=== PATIENT | female | born 1945 | race Caucasian/White ===

== ENCOUNTER 2020-08-17 15:08 | Inpatient (IN) ==
[2020-08-17 16:51] LABS: Basophils # (auto) 0.01 K/uL (0-0.2); Basophils % (auto) 0.1 %; Eosinophils # (auto) 0.07 K/uL (0-0.5); Eosinophils % (auto) 0.6 %; Hematocrit (blood only) 40.5 % (37-47); Hemoglobin 13.6 g/dL (12.0-16.0); Immature Granulocytes # (auto) 0.01 K/uL (0.00-0.02); Immature Granulocytes % (auto) 0.1 %; Mean Corpuscular Hemoglobin 29.3 pg (25-34); Mean Corpuscular Hgb Conc 33.6 g/dL (32-36); Mean Corpuscular Volume 87.3 fL (80-100); Mean Platelet Volume 10.9 fL (7.4-10.4); Monocytes # (auto) 1.31 K/uL (0.11-0.59); Monocytes % (auto) 11.9 %; Neutrophils # (auto) 8.48 K/uL (1.4-6.5); Neutrophils % (auto) 77.3 %; Platelet Count 386 K/uL (130-400); RDW Coefficient of Variation 14.4 % (11.5-14.5); RDW Standard Deviation 46.1 fL (36.4-46.3); Red Blood Count 4.64 M/uL (4.2-5.4); White Blood Count 10.98 K/uL (4.8-10.8)
[2020-08-17 17:13] LABS: Alanine Aminotransferase 264 U/L (12-78); Albumin Level 3.3 gm/dl (3.4-5.0); Aspartate Aminotransferase 214 U/L (15-37); BUN Creatinine Ratio 14.7 (10-20); Blood Urea Nitrogen 16 mg/dl (7-18); Calcium 9.6 mg/dl (8.5-10.1); Carbon Dioxide 28 mmol/L (21-32); Chloride 103 mmol/L (98-107); Est GFR (African American) 56.9; Est GFR (Non-African American) 49.1; Glucose 107 mg/dl (70-99); Potassium 3.3 mmol/L (3.5-5.1); Sodium 139 mmol/L (136-145)
[2020-08-17] MEDS ORDERED: ACETAMINOPHEN 1,000 MG/100 ML VIAL IV STA (17:14)
[2020-08-17] MEDS ORDERED: SODIUM CHLORIDE 0.9% 1000ML 1,000 ML IV SCH (17:15)
[2020-08-17 17:16] LABS: Albumin Globulin Ratio 0.6 (0.9-2); Alkaline Phosphatase 133 U/L (45-117); Bilirubin,Total 0.5 mg/dl (0.2-1); Globulin 5.1 gm/dl (2.5-4.0); Total Protein 8.4 gm/dl (6.4-8.2)
[2020-08-17 17:28] LABS: Lipase 337 U/L (73-393); Magnesium 2.3 mg/dl (1.8-2.4)
--- NOTE | 2020-08-17 17:29 | Emergency Department Note ---
History of Present Illness General Chief complaint: Back Injury/Pain Stated complaint: BACK PAIN Time Seen by Provider: 08/17/20 17:07 Source: patient Mode of arrival: ambulatory Limitations: no limitations History of Present Illness Provider complaint: Back pain Onset (ago): day(s) 4 Location: back Radiation: non-radiation Severity: moderate Pain Consistency: + constant Maximum Pain Intensity: 5 Current Pain Intensity: 5 Quality: + constant Relieved By: + none Exacerbated By: + movement Associated symptoms: + other Treatments prior to arrival: other This is a 75-year-old female who presents from home with complaints of central lumbar back pain. Patient states pain began mildly 4 days ago however has been constant, nonradiating, worse with movement. States today was the worst her pain is been. She denies any change in medications or prior history of back problems. Denies any trauma or falls. Patient denies any recent fevers. States she did receive her second Covid vaccine last week and felt achy and sore for several days however those all resolved prior to the start of this back pain. She denies having any back pain during the symptoms of the vaccination. Patient states she did have multiple bowel movements today, loose which is unusual for her, not black or bloody. She denies any change in urine. She denies any accompanying numbness or tingling. Patient states she is unable to stand straight up because of the pain. Pt seen during a time of high acuity and national emergency pandemic while wearing PPE. Home Medications Medication Instructions Recorded Confirmed Type atenolol 50 mg PO QAM 08/17/20 08/17/20 History clonazepam 0.5 mg PO AMPM 08/17/20 08/17/20 History donepezil 5 mg PO QPM 08/17/20 08/17/20 History ezetimibe 10 mg PO QAM 08/17/20 08/17/20 History melatonin 3 mg PO HS 08/17/20 08/17/20 History mesalamine 1.2 g PO BID 08/17/20 08/17/20 History mirtazapine 30 mg PO QPM 08/17/20 08/17/20 History nifedipine 90 mg PO QAM 08/17/20 08/17/20 History pantoprazole 40 mg PO QAM 08/17/20 08/17/20 History psyllium husk [Metamucil] 1 tbsp PO QAM 08/17/20 08/17/20 History quetiapine 25 mg PO HS 08/17/20 08/17/20 History rivaroxaban [Xarelto] 15 mg PO QPM 08/17/20 08/17/20 History rosuvastatin 40 mg PO QAM 08/17/20 08/17/20 History vit C-vit M-hvtdxn-dxpe-lutein 1 cap PO BID 08/17/20 08/17/20 History [PreserVision Lutein] Allergies Allergy/AdvReac Type Severity Reaction Status Date / Time escitalopram [From Lexapro] Allergy Unknown Verified 08/17/20 18:29 hydroxyzine [From Vistaril] Allergy Unknown Verified 08/17/20 18:29 Sulfa (Sulfonamide Allergy Unknown Verified 08/17/20 18:29 Antibiotics) trimethobenzamide Allergy Unknown Verified 08/17/20 18:29 [From Tigan] Past Med/Surg History Medical History (Updated 08/18/20 @ 00:46 by Nithya Roy DO) Coronary artery disease Myocardial infarction Normal colonoscopy Peripheral vascular disease Surgical History (Updated 08/17/20 @ 21:03 by Art Martinez PA-C) History of carotid endarterectomy History of cholecystectomy History of hysterectomy Social History Smoking Status: Never smoker Hx Alcohol Use: No Hx Substance Use: No Preferred Language: Occitan Communication Ability: Effective Chief Specialist Leed Required: No Beliefs That Will Affect Care: None Current Living Situation: Family Current Living Situation Comment: daughter and son-in-law Other Information That Helps Us Care for You: No Feels Safe at Home: Yes Safety Concerns: Feels Safe At This Time Assistive Devices: Denture - Lower and Glasses Review of Systems See HPI for pertinent positives & negatives. and A total of 10 systems reviewed and were otherwise negative Physical Exam Vital Signs Vital Signs - 24 hr 08/17/20 15:16 08/17/20 16:30 08/17/20 17:07 Temperature 37.1 C Temperature Source Temporal Artery Scan Pulse Rate 97 H Pulse Rate [Finger] 97 H Pulse Rate from SpO2 Sensor Pulse Rhythm [Finger] Irregular Respiratory Rate 18 20 Respiratory Effort / Characteristics Non-Labored Non-Labored Respiratory Depth Normal Normal Respiratory Pattern Regular Blood Pressure 119/71 Blood Pressure [Left Arm] 129/87 Blood Pressure Mean 87 Blood Pressure Mean [Left Arm] 101 Blood Pressure Position [Left Arm] Lying Pulse Oximetry 97 97 97 Oxygen Delivery Method Room Air Room Air Room Air Sepsis Recent Fever Within 48 Hours No Sepsis New/Unexplained Change in Mental Status No Sepsis Action Taken by Nursing No Action Required 08/17/20 17:08 08/17/20 17:10 08/17/20 17:20 Temperature Temperature Source Pulse Rate 94 H 91 H 98 H Pulse Rate [Finger] Pulse Rate from SpO2 Sensor 95 H 96 H 97 H Pulse Rhythm [Finger] Respiratory Rate 23 19 23 Respiratory Effort / Characteristics Respiratory Depth Respiratory Pattern Blood Pressure Blood Pressure [Left Arm] Blood Pressure Mean Blood Pressure Mean [Left Arm] Blood Pressure Position [Left Arm] Pulse Oximetry 95 98 97 Oxygen Delivery Method Sepsis Recent Fever Within 48 Hours Sepsis New/Unexplained Change in Mental Status Sepsis Action Taken by Nursing 08/17/20 17:30 08/17/20 17:33 08/17/20 18:01 Temperature Temperature Source Pulse Rate 94 H 94 H 93 H Pulse Rate [Finger] Pulse Rate from SpO2 Sensor 93 H 98 H 87 Pulse Rhythm [Finger] Respiratory Rate 23 21 27 H Respiratory Effort / Characteristics Respiratory Depth Respiratory Pattern Blood Pressure 120/68 89/57 L Blood Pressure [Left Arm] Blood Pressure Mean 85 67 Blood Pressure Mean [Left Arm] Blood Pressure Position [Left Arm] Pulse Oximetry 93 96 97 Oxygen Delivery Method Sepsis Recent Fever Within 48 Hours Sepsis New/Unexplained Change in Mental Status Sepsis Action Taken by Nursing 08/17/20 18:30 08/17/20 19:00 08/17/20 19:27 Temperature Temperature Source Pulse Rate 82 88 87 Pulse Rate [Finger] Pulse Rate from SpO2 Sensor 85 90 82 Pulse Rhythm [Finger] Respiratory Rate 20 23 21 Respiratory Effort / Characteristics Respiratory Depth Respiratory Pattern Blood Pressure 111/71 117/71 118/61 Blood Pressure [Left Arm] Blood Pressure Mean 84 86 80 Blood Pressure Mean [Left Arm] Blood Pressure Position [Left Arm] Pulse Oximetry 95 93 94 Oxygen Delivery Method Room Air Sepsis Recent Fever Within 48 Hours Sepsis New/Unexplained Change in Mental Status Sepsis Action Taken by Nursing 08/17/20 19:30 08/17/20 20:00 08/17/20 20:30 Temperature Temperature Source Pulse Rate 80 80 78 Pulse Rate [Finger] Pulse Rate from SpO2 Sensor 81 85 Pulse Rhythm [Finger] Respiratory Rate 26 H 20 21 Respiratory Effort / Characteristics Respiratory Depth Respiratory Pattern Blood Pressure 116/60 125/58 L 106/62 Blood Pressure [Left Arm] Blood Pressure Mean 78 80 76 Blood Pressure Mean [Left Arm] Blood Pressure Position [Left Arm] Pulse Oximetry 93 93 Oxygen Delivery Method Sepsis Recent Fever Within 48 Hours Sepsis New/Unexplained Change in Mental Status Sepsis Action Taken by Nursing 08/17/20 21:00 Temperature Temperature Source Pulse Rate 83 Pulse Rate [Finger] Pulse Rate from SpO2 Sensor Pulse Rhythm [Finger] Respiratory Rate 22 Respiratory Effort / Characteristics Respiratory Depth Respiratory Pattern Blood Pressure 116/74 Blood Pressure [Left Arm] Blood Pressure Mean 88 Blood Pressure Mean [Left Arm] Blood Pressure Position [Left Arm] Pulse Oximetry Oxygen Delivery Method Sepsis Recent Fever Within 48 Hours Sepsis New/Unexplained Change in Mental Status Sepsis Action Taken by Nursing GENERAL: alert, well appearing, well nourished, no distress, non-toxic EYE EXAM: normal conjunctiva, PERRL and EOM's grossly intact OROPHARYNX: no exudate, no erythema, lips, buccal mucosa, and tongue normal and mucous membranes are moist NECK: supple, no nuchal rigidity, no adenopathy, non-tender LUNGS: Clear to auscultation. Normal chest wall mechanics, no w/r/r HEART: no murmurs, S1 normal and S2 normal ABDOMEN: abdomen soft, non-tender, normo-active bowel sounds, no masses, no rebound or guarding. BACK: Back is symmetrical on inspection and there is no deformity, no CVA tenderness. Lower lumbar spine pain with palpation. SKIN: no rashes and no bruising UPPER EXTREMITIES: upper extremities are grossly normal. FROM, nml pulses b/l. LOWER EXTREMITIES: No pitting edema. FROM, nml pulses b/l. NEURO EXAM: Normal sensorium, cranial nerves II-XII grossly intact, normal speech, no gross weakness of arms, no gross weakness of legs. Gross sensation intact. Course Course 1944: Updated patient at bedside. 1952: Discussed with station usher gen surg Chuck MENDEZ. 2015: Patient seen and evaluated by general surgery PA in the emergency room. They do not feel this would require IR drainage or surgery and patient could be medically managed. Administered Medications Lorazepam (Ativan) 0.25 mg in 0.5 mls @ 0.5 mls/min IV Q6H PRN PRN Reason: Anxiety Stop: 09/16/20 23:09 Last Admin: 08/17/20 23:47 Dose: 0.5 mls/min Documented by: [id number] Potassium Chloride/Sodium Chloride (Normal Saline W/20 Meq Kcl) 20 meq in 1,000 mls @ 100 mls/hr IV .Q10H RENETTA Stop: 09/16/20 23:09 Last Admin: 08/17/20 23:32 Dose: 100 mls/hr Documented by: [id number] Famotidine 20 mg/ Syringe 5 mls @ 2.5 mls/min IV Q12 RENETTA Stop: 09/16/20 23:09 Last Admin: 08/17/20 23:32 Dose: 2.5 mls/min Documented by: [id number] Discontinued Medications Sodium Chloride (Nss 1000ml) 1,000 mls @ 125 mls/hr IV .Q8H RENETTA Stop: 09/16/20 17:14 Last Infusion: 08/17/20 23:13 Dose: 0 mls/hr Documented by: [id number] Admin: 08/17/20 17:34 Dose: 125 mls/hr Documented by: [id number] Acetaminophen (Ofirmev) 1,000 mg in 100 mls @ 400 mls/hr IV NOW STA Stop: 08/17/20 17:28 Last Infusion: 08/17/20 20:31 Dose: 0 mls/hr Documented by: [id number] Infusion: 08/17/20 18:40 Dose: 0 mls/hr Documented by: [id number] Admin: 08/17/20 17:33 Dose: 400 mls/hr Documented by: [id number] Piperacillin Sod/Tazobactam Sod (Zosyn) 4.5 gm in 120 mls @ 240 mls/hr IV NOW ONE Stop: 08/17/20 20:19 Last Infusion: 08/17/20 20:46 Dose: 0 mls/hr Documented by: [id number] Admin: 08/17/20 20:16 Dose: 240 mls/hr Documented by: [id number] Metronidazole (Flagyl) 500 mg in 100 mls @ 100 mls/hr IV NOW STA Stop: 08/17/20 20:49 Last Infusion: 08/17/20 21:30 Dose: 0 mls/hr Documented by: [id number] Admin: 08/17/20 20:30 Dose: 100 mls/hr Documented by: [id number] Critical Care Time Critical Care Time: Yes Total Critical Care Time: 35 Critical care of 35 min performed to assess and manage high likelihood of life- threatening bowel perforation and abscess, involving labs and imaging performed with assessment to evaluate back pain diagnosis with frequent reassessment. This time includes bedside time, treatment discussions with patient/family/consultants, documentation time and excludes procedure time. Medical Decision Making Differential Diagnosis Differential diagnoses includes but is not limited to lumbar radiculopathy, muscle strain, facture, cauda equina, mass, and disc herniation. Medical Records Attestation: I reviewed the patient's medical records. Home Medications Current Medication List: was personally reviewed by me Laboratory Data Attestation: I reviewed the patient's lab results. Result diagrams: 08/17/20 15:30 08/17/20 15:30 Lab Results 08/17/20 08/17/20 08/17/20 Range/Units 15:30 15:30 18:20 WBC 10.98 H (4.8-10.8) K/uL RBC 4.64 (4.2-5.4) M/uL Hgb 13.6 (12.0-16.0) g/dL Hct 40.5 (37-47) % MCV 87.3 (80-100) fL MCH 29.3 (25-34) pg MCHC 33.6 (32-36) g/dL RDW Std Deviation 46.1 (36.4-46.3) fL RDW Coeff of Jacki 14.4 (11.5-14.5) % Plt Count 386 (130-400) K/uL MPV 10.9 H (7.4-10.4) fL Immature Gran % (Auto) 0.1 % Neut % (Auto) 77.3 % Lymph % (Auto) 10.0 % [place] % (Auto) 11.9 % Eos % (Auto) 0.6 % Baso % (Auto) 0.1 % Neut # (Auto) 8.48 H (1.4-6.5) K/uL Lymph # (Auto) 1.10 L (1.2-3.4) K/uL [place] # (Auto) 1.31 H (0.11-0.59) K/uL Eos # (Auto) 0.07 (0-0.5) K/uL Baso # (Auto) 0.01 (0-0.2) K/uL Immature Gran # (Auto) 0.01 (0.00-0.02) K/uL Sodium 139 (136-145) mmol/L Potassium 3.3 L (3.5-5.1) mmol/L Chloride 103 (98-107) mmol/L Carbon Dioxide 28 (21-32) mmol/L Anion Gap 8.0 (3-11) BUN 16 (7-18) mg/dl Creatinine 1.10 (0.6-1.2) mg/dl Est Cr Clr Drug Dosing Not Reportable Est GFR ( Amer) 56.9 Est GFR (Non-Af Amer) 49.1 BUN/Creatinine Ratio 14.7 (10-20) Glucose 107 H (70-99) mg/dl Calcium 9.6 (8.5-10.1) mg/dl Magnesium 2.3 (1.8-2.4) mg/dl Total Bilirubin 0.5 (0.2-1) mg/dl AST 214 H (15-37) U/L ALT 264 H (12-78) U/L Alkaline Phosphatase 133 H (45-117) U/L Total Protein 8.4 H (6.4-8.2) gm/dl Albumin 3.3 L (3.4-5.0) gm/dl Globulin 5.1 H (2.5-4.0) gm/dl Albumin/Globulin Ratio 0.6 L (0.9-2) Lipase 337 (73-393) U/L Urine Color Dark Yellow Urine Appearance Clear (Clear) Urine pH 5.5 (4.5-7.5) Ur Specific [place] 1.028 (1.000-1.030) Urine Protein 2+ H (Negative) Urine Glucose (UA) Negative (Negative) Urine Ketones Trace H (Negative) Urine Blood Negative (Negative) Urine Nitrite Negative (Negative) Urine Bilirubin Negative (Negative) Urine Urobilinogen Negative (Negative) Ur Leukocyte Esterase Negative (Negative) Urine WBC (Auto) 5-10 H (0-5) /hpf Urine RBC (Auto) 0-4 (0-4) /hpf U Hyaline Cast (Auto) 5-10 H (0-5) /lpf U Epithel Cells (Auto) >30 H (0-5) /lpf Urine Bacteria (Auto) Negative (Negative) COVID-19 Eval Order SARS-CoV-2 (PCR) (Negative) Influenza Type A (PCR) (Neg) Influenza Type B (PCR) (Neg) RSV (RT-PCR) (Neg) 08/17/20 08/17/20 Range/Units 20:30 20:30 WBC (4.8-10.8) K/uL RBC (4.2-5.4) M/uL Hgb (12.0-16.0) g/dL Hct (37-47) % MCV (80-100) fL MCH (25-34) pg MCHC (32-36) g/dL RDW Std Deviation (36.4-46.3) fL RDW Coeff of Jacki (11.5-14.5) % Plt Count (130-400) K/uL MPV (7.4-10.4) fL Immature Gran % (Auto) % Neut % (Auto) % Lymph % (Auto) % [place] % (Auto) % Eos % (Auto) % Baso % (Auto) % Neut # (Auto) (1.4-6.5) K/uL Lymph # (Auto) (1.2-3.4) K/uL [place] # (Auto) (0.11-0.59) K/uL Eos # (Auto) (0-0.5) K/uL Baso # (Auto) (0-0.2) K/uL Immature Gran # (Auto) (0.00-0.02) K/uL Sodium (136-145) mmol/L Potassium (3.5-5.1) mmol/L Chloride (98-107) mmol/L Carbon Dioxide (21-32) mmol/L Anion Gap (3-11) BUN (7-18) mg/dl Creatinine (0.6-1.2) mg/dl Est Cr Clr Drug Dosing Est GFR ( Amer) Est GFR (Non-Af Amer) BUN/Creatinine Ratio (10-20) Glucose (70-99) mg/dl Calcium (8.5-10.1) mg/dl Magnesium (1.8-2.4) mg/dl Total Bilirubin (0.2-1) mg/dl AST (15-37) U/L ALT (12-78) U/L Alkaline Phosphatase (45-117) U/L Total Protein (6.4-8.2) gm/dl Albumin (3.4-5.0) gm/dl Globulin (2.5-4.0) gm/dl Albumin/Globulin Ratio (0.9-2) Lipase (73-393) U/L Urine Color Urine Appearance (Clear) Urine pH (4.5-7.5) Ur Specific [place] (1.000-1.030) Urine Protein (Negative) Urine Glucose (UA) (Negative) Urine Ketones (Negative) Urine Blood (Negative) Urine Nitrite (Negative) Urine Bilirubin (Negative) Urine Urobilinogen (Negative) Ur Leukocyte Esterase (Negative) Urine WBC (Auto) (0-5) /hpf Urine RBC (Auto) (0-4) /hpf U Hyaline Cast (Auto) (0-5) /lpf U Epithel Cells (Auto) (0-5) /lpf Urine Bacteria (Auto) (Negative) COVID-19 Eval Order CovFluRsv at [facility] SARS-CoV-2 (PCR) NEGATIVE (Negative) Influenza Type A (PCR) Negative (Neg) Influenza Type B (PCR) Negative (Neg) RSV (RT-PCR) Negative (Neg) Imaging Data Radiologist's Impression: Abdomen/Pelvis CT 08/17/20 17:[address] WITH IV CONTRAST CT DOSE: 479.46 mGy.cm HISTORY: change in bowel movements, back pain TECHNIQUE: Multiaxial CT images of the abdomen and pelvis were performed following the use of intravenous contrast. A dose lowering technique was utilized adhering to the principles of ALARA. COMPARISON STUDY: None. FINDINGS: There is a 4 mm subpleural nodule within the base of the right lower lobe on image 36. There is a large hiatus hernia containing the majority of the stomach as well as the spleen and splenic flexure of the colon. No suspicious lytic are blastic osseous lesions. There are poststernotomy changes. The gallbladder surgically absent. This may account for the mild intra and extra hepatic bile duct dilatation. No hepatic or splenic masses. The adrenal glands and pancreas are unremarkable. Small bilateral peripelvic renal cysts are noted. There are also a few subcentimeter hypodense renal lesions. These are technically too small to characterize but also favor cysts. No hydronephrosis. No retroperitoneal lymphadenopathy. Normal caliber abdominal aorta demonstrating moderate calcified plaque. The bladder is decompressed. The uterus is surgically absent. Colonic diverticulosis. There is focal thickening and pericolonic fat stranding within the proximal sigmoid colon consistent with acute diverticulitis. There is a small pericolonic abscess best seen on image 318 which measures 2.6 cm. There is also a punctate focus of extraluminal gas at this location on image 286 consistent with microperforation. There is a 1 cm indeterminate left perinephric/retroperitoneal nodule best seen on image 102. No evidence for bowel obstruction. Focal mild thickening within the mid appendix be st seen on image 289 which measures 9 mm. The distal appendix is normal in caliber. No periappendiceal fat stranding to suggest acute appendicitis. IMPRESSION: 1. Acute diverticulitis involving the proximal sigmoid colon with a small focus of microperforation and an adjacent 2.2 cm pericolonic abscess. Follow-up colonoscopy is recommended once the vasculitis has resolved to exclude the less likely possibility of an underlying colonic lesion. 2. There is an indeterminate 1 cm left perinephric/retroperitoneal nodule as described above. 3 month abdomen and pelvis CT follow-up recommended to evaluate for stability and to exclude the possibility of a soft tissue implant. 3. Focal mild thickening within the mid appendix without inflammatory change. This also requires [address] follow-up to exclude the possibility of an appendiceal lesion. 4. Large hiatus hernia. 5. A 4 mm subpleural nodule within the right lower lobe. 6. Additional findings as described above. ACT 112: Positive. There are findings on this exam that require communication between the performing entity and the patient following Patient Test Result Information Act ([place] Act 112) guidelines. Electronically signed by: Akil See M.D. 08/17/2020 7:[address] 08/17/20 17:[address] DOSE: HISTORY: low back pain TECHNIQUE: Multiaxial CT images of the lumbar spine were performed and reformatted in the sagittal and coronal plane without the use of contrast. A dose lowering technique was utilized adhering to the principles of ALARA. COMPARISON: None. FINDINGS: Mild dextroscoliosis centered at the L3 level. Moderate to severe disc space narrowing at L5-S1. Mild disc space narrowing at L2-L3 and L3-L4 with small endplate osteophytes. There are [id number] facet degenerative changes seen within the lumbar spine. This most pronounced at the L3-L4 level. The visualized sacrum is intact. No fracture or subluxation. Paravertebral soft tissues are unremarkable. Moderate central canal narrowing at L3-L4 and L4-L5 due to broad-based posterior disc bulge and ligamentum flavum and facet hy pertrophy. IMPRESSION: 1. No fractures within the lumbar spine. 2. Moderate central canal narrowing at L3-L4 and L4-L5 due to broad-based posterior disc bulges and ligamentum and facet hypertrophy. 3. Mild dextroscoliosis. ACT 112: Negative or not required by law. Electronically signed by: Akil See M.D. 08/17/2020 7:21 PM ECG Data Indication: + back/shoulder pain Rate (beats per minute): 90 Rhythm: + atrial fibrillation ECG Intervals/blocks: + Right Bundle branch block ECG [place]: + Left axis deviation ECG ST segments: + Nonspecific ST abnormalities MDM Narrative This is a 75-year-old female who presents with concern for acute onset lumbar area back pain. No prior history and no recent trauma. Given patient's advanced age and other comorbidities patient had labs drawn and sent, urine specimen collected, and was sent for CT imaging of both the lumbar spine as well as the abdomen and pelvis to evaluate for possible referred etiology of pain. Patient found to have acute diverticulitis with microperforation and accompanying abscess. Patient with no prior similar history, and no other GI history. Patient was started on IV antibiotics. No evidence for bacteremia/sepsis. Patient hemodynamically stable. Patient is anticoagulated due to history of atrial fibrillation and given abscess is small, I discussed the case with general surgery to evaluate the need for possible transfer for IR drainage versus medical management. They reviewed the case and examined the patient at bedside and felt this could be managed medically. Hospitalist team contacted for additional inpatient evaluation and treatment. Patient and family at bedside made aware of all results and were in agreement with plan. An order was placed for continuous cardiac monitoring. The monitor shows a rate of _92_ with _A. fib_ rhythm. Impression & Plan Low back pain, Diverticulitis, Hypokalemia, Intra-abdominal abscess, Perforated bowel Discharge Plan Visit Data Chief Complaint: Back Injury/Pain Stated Complaint: BACK PAIN ED Provider: Nithya Roy Discharge Problem: Low back pain, Diverticulitis, Hypokalemia, Intra-abdominal abscess, Perforated bowel Patient Disposition: Admitted As Inpatient Discharge Instructions Interventions: ED Discharge Assessment Last Done: 08/17/20 22:45 Discharge Problem: Low back pain Qualifiers: Chronicity: acute Back pain laterality: midline Sciatica presence: without sciatica Qualified Code(s): M54.5 - Low back pain
[2020-08-17 18:40] LABS: Appearance Urine Clear (Clear); Bacteria Urine Automated Negative (Negative); Bilirubin Urine Negative (Negative); Blood Urine Negative (Negative); Color Urine Dark Yellow; Epithelial Cell Urine Auto >30 /lpf (0-5); Glucose Urine UA Negative (Negative); Ketones Urine Trace (Negative); Leukocyte Esterase Urine Negative (Negative); Nitrite Urine Negative (Negative); Protein Urine 2+ (Negative); RBC Urine Automated 0-4 /hpf (0-4); Specific Gravity Urine 1.028 (1.000-1.030); Urobilinogen Urine Negative (Negative); pH Urine 5.5 (4.5-7.5)
--- NOTE | 2020-08-17 19:23 | CT Scan Report ---
LUMBAR SPINE CT CT DOSE: HISTORY: low back pain TECHNIQUE: Multiaxial CT images of the lumbar spine were performed and reformatted in the sagittal an d coronal plane without the use of contrast. A dose lowering technique was utilized adhering to the principles of ALARA. COMPARISON: None. FINDINGS: Mild dextroscoliosis centered at the L3 level. Moderate to severe disc space narrowing at L 5-S1. Mild disc space narrowing at L2-L3 and L3-L4 with small endplate osteophytes. There are mild-to -moderate facet degenerative changes seen within the lumbar spine. This most pronounced at the L3-L4 level. The visualized sacrum is intact. No fracture or subluxation. Paravertebral soft tissues are un remarkable. Moderate central canal narrowing at L3-L4 and L4-L5 due to broad-based posterior disc bul ge and ligamentum flavum and facet hypertrophy. IMPRESSION: 1. No fractures within the lumbar spine. 2. Moderate central canal narrowing at L3-L4 and L4-L5 due to broad-based posterior disc bulges and l igamentum and facet hypertrophy. 3. Mild dextroscoliosis. ACT 112: Negative or not required by law. Electronically signed by: Akil See M.D. 08/17/2020 7:21 PM
--- NOTE | 2020-08-17 19:34 | CT Scan Report ---
ABDOMEN AND PELVIS CT WITH IV CONTRAST CT DOSE: 479.46 mGy.cm HISTORY: change in bowel movements, back pain TECHNIQUE: Multiaxial CT images of the abdomen and pelvis were performed following the use of intrave nous contrast. A dose lowering technique was utilized adhering to the principles of ALARA. COMPARISON STUDY: None. FINDINGS: There is a 4 mm subpleural nodule within the base of the right lower lobe on image 36. Ther e is a large hiatus hernia containing the majority of the stomach as well as the spleen and splenic f lexure of the colon. No suspicious lytic are blastic osseous lesions. There are poststernotomy change s. The gallbladder surgically absent. This may account for the mild intra and extra hepatic bile duct dilatation. No hepatic or splenic masses. The adrenal glands and pancreas are unremarkable. Small bi lateral peripelvic renal cysts are noted. There are also a few subcentimeter hypodense renal lesions. These are technically too small to characterize but also favor cysts. No hydronephrosis. No retroper itoneal lymphadenopathy. Normal caliber abdominal aorta demonstrating moderate calcified plaque. The bladder is decompressed. The uterus is surgically absent. Colonic diverticulosis. There is focal thic kening and pericolonic fat stranding within the proximal sigmoid colon consistent with acute divertic ulitis. There is a small pericolonic abscess best seen on image 318 which measures 2.6 cm. There is a lso a punctate focus of extraluminal gas at this location on image 286 consistent with microperforati on. There is a 1 cm indeterminate left perinephric/retroperitoneal nodule best seen on image 102. No evidence for bowel obstruction. Focal mild thickening within the mid appendix best seen on image 289 which measures 9 mm. The distal appendix is normal in caliber. No periappendiceal fat stranding to ahnnah ggest acute appendicitis. IMPRESSION: 1. Acute diverticulitis involving the proximal sigmoid colon with a small focus of microperforation a nd an adjacent 2.2 cm pericolonic abscess. Follow-up colonoscopy is recommended once the vasculitis h as resolved to exclude the less likely possibility of an underlying colonic lesion. 2. There is an indeterminate 1 cm left perinephric/retroperitoneal nodule as described above. 3 month abdomen and pelvis CT follow-up recommended to evaluate for stability and to exclude the possibility of a soft tissue implant. 3. Focal mild thickening within the mid appendix without inflammatory change. This also requires [address] follow-up to exclude the possibility of an appendiceal lesion. 4. Large hiatus hernia. 5. A 4 mm subpleural nodule within the right lower lobe. 6. Additional findings as described above. ACT 112: Positive. There are findings on this exam that require communication between the performing entity and the patient following Patient Test Result Information Act ([place] Act 112) guidelines. Electronically signed by: Akil See M.D. 08/17/2020 7:33 PM
[2020-08-17] MEDS ORDERED: PIPERACILLIN/TAZOBACTAM 4.5 GM/120 ML BAG IV ONE (19:50)
[2020-08-17] MEDS ORDERED: PIPERACILL/TAZOBAC CONSULT ACTIVE PRN ×2 (19:50→23:10)
[2020-08-17] MEDS ORDERED: metroNIDAZOLE 500 MG/100 ML BAG IV STA (19:50)
--- NOTE | 2020-08-17 21:08 | Surgery Consultation ---
Date of Consultation August 17, 2020 Assessment & Plan (1) Diverticulitis of intestine with abscess: Patient will be admitted to the hospital by the medical service with the following recommendations in place: Provide analgesics Provide antiemetics Keep the patient n.p.o. Provide IV fluids for hydration Administer antibiotics. The patient has received Zosyn as well as Flagyl in the emergency department -We will consider advancing the patient's diet slowly as she clinically improves. I have discussed with the patient that we would not perform any urgent operation at this time as this would likely require a colostomy. If she does require surgery it would be ideal to allow her current infection to improve that way in the event surgery is required a 1 stage operation could be performed which would be preferable. In addition the patient's diverticulitis she is noted to have elevated transaminases and alkaline phosphatase. The etiology of this is unclear. Patient does not have any existing records so may be prudent to trend these lab values with further evaluation based on ensuing lab results. We will continue to follow along with the patient is hospitalized. Supervising Physician Co-Signing Physician Notes I personally saw and evaluated the patient with Art Martinez PA-C and agree with the assessment and plan 75 yo female with acute diverticulitis with pericolonic abscess -Keep NPO -IV Zosyn -Trend WBC -Serial abdominal exams -No plans for surgical intervention at this time History of Present Illness Reason for Consultation: Diverticulitis with abscess History of Present Illness This is a 75-year-old female who presented to the [facility] emergency department secondary to low back pain. Patient says the pain began approximately 4 days ago but has gotten progressively worse over the past 4 days. She notes that the pain is worse with movement and is nonradiating. She denies any fevers, shakes, chills. She denies any history of falls or other injuries that would explain her back pain. She denies any weight loss. She does note that several days ago she did receive her second Covid vaccine and at this time she did feel acutely ill with fevers, nausea, vomiting and generalized abdominal pain but the symptoms have since resolved. The patient notes with her current presentation she has minimal abdominal pain. She has not had any nausea vomiting today and she has not had any fevers, shakes, or chills today. She denies any issues with constipation and she also denies any bright blood per rectum, hematochezia, or melena. Patient says that she has had multiple colonoscopies in the past and the best of her knowledge there have never been any pathology of concern with any of these studies. Because of her symptomatology she did undergo labs and imaging that were independently reviewed by myself. A CBC revealed a white blood cell count of 10.9. Her hemoglobin, hematocrit, and platelet count were all noted to be within normal range. Chemistry profile did reveal her sodium was normal with a potassium of 3.3. Her BUN and creatinine were noted to be normal. Patient was noted to have elevated LFTs with an AST of 214 and ALT of 264. Her alkaline phosphatase was noted to be 133. Lipase was noted to be within normal range and the patient's bilirubin was also noted to be normal. Covid test has been ordered and is pending. Patient did have a CT scan of her abdomen which revealed acute diverticulitis of the sigmoid colon with a microperforation and a pericolonic abscess measuring 2.[address] spine [address] was performed that showed no fractures within the lumbar spine and there is moderate central canal narrowing at the L3-L5 levels. At the time of my interview the patient was resting comfortably in bed in no distress Allergies Allergy/AdvReac Type Severity Reaction Status Date / Time escitalopram [From Lexapro] Allergy Unknown Verified 08/17/20 18:29 hydroxyzine [From Vistaril] Allergy Unknown Verified 08/17/20 18:29 Sulfa (Sulfonamide Allergy Unknown Verified 08/17/20 18:29 Antibiotics) trimethobenzamide Allergy Unknown Verified 08/17/20 18:29 [From Tigan] Home Medications Medication Instructions Recorded Confirmed Type atenolol 50 mg PO QAM 08/17/20 08/17/20 History clonazepam 0.5 mg PO AMPM 08/17/20 08/17/20 History donepezil 5 mg PO QPM 08/17/20 08/17/20 History ezetimibe 10 mg PO QAM 08/17/20 08/17/20 History melatonin 3 mg PO HS 08/17/20 08/17/20 History mesalamine 1.2 g PO BID 08/17/20 08/17/20 History mirtazapine 30 mg PO QPM 08/17/20 08/17/20 History nifedipine 90 mg PO QAM 08/17/20 08/17/20 History pantoprazole 40 mg PO QAM 08/17/20 08/17/20 History psyllium husk [Metamucil] 1 tbsp PO QAM 08/17/20 08/17/20 History quetiapine 25 mg PO HS 08/17/20 08/17/20 History rivaroxaban [Xarelto] 15 mg PO QPM 08/17/20 08/17/20 History rosuvastatin 40 mg PO QAM 08/17/20 08/17/20 History vit C-vit I-vftxcp-oovs-lutein 1 cap PO BID 08/17/20 08/17/20 History [PreserVision Lutein] Patient History Medical History (Updated 08/18/20 @ 03:24 by Arun Harvey MD) Anxiety Chronic anticoagulation Coronary artery disease Dementia Depression Hyperlipidemia Hypertension Myocardial infarction Normal colonoscopy Peripheral vascular disease Surgical History (Updated 08/17/20 @ 21:03 by Art Martinez PA-C) History of carotid endarterectomy History of cholecystectomy History of hysterectomy Social History Smoking Status: Never smoker Hx Alcohol Use: No Hx Substance Use: No Preferred Language: Georgian Communication Ability: Effective Director Public Service Required: No Beliefs That Will Affect Care: None Current Living Situation: Family Current Living Situation Comment: daughter and son-in-law Other Information That Helps Us Care for You: No Feels Safe at Home: Yes Safety Concerns: Feels Safe At This Time Assistive Devices: Denture - Lower and Glasses Review of Systems Constitutional: no fever and no chills Eyes: no diplopia Ear, Nose, Mouth, Throat: no ear pain Respiratory: no cough and no dyspnea Cardiovascular: no chest pain Gastrointestinal: + abdominal pain; no nausea, no vomiting, no diarrhea/loose stools and no blood in stools Genitourinary: no dysuria Musculoskeletal: + back pain Integumentary: no rash Neurologic: no localized weakness Physical Exam Constitutional: well developed and well nourished; no acute distress Eyes: no conjunctival abnormality Wears glasses ENMT: Ears: no hearing impairment Neck: trachea midline Respiratory: normal respiratory effort; no respiratory distress and no labored breathing Cardiovascular: Rate/Rhythm: regular rate and regular rhythm Gastrointestinal (Abdomen): Abdomen is soft and nondistended. Bowel sounds are present. There is no rebound tenderness or guarding. Patient did have pain with palpation in the left lower quadrant only with deep palpation Musculoskeletal: No calf tenderness Skin: no rashes, warm and dry Neurologic: The patient was able to move all 4 extremities and follow simple commands without any noted focal deficits. Patient had equal strength in her lower extremities bilaterally Psychiatric: A+Ox3, euthymic affect Results & Data ([facility]) Vital Signs (Past 12 Hours) Vital Signs Temp Pulse Pulse Resp BP BP Pulse Ox 08/17/20 19:27 82 18 118/61 93 08/17/20 17:33 94 H 21 120/68 96 08/17/20 17:30 94 H 23 93 08/17/20 17:20 98 H 23 97 08/17/20 17:10 91 H 19 98 08/17/20 17:08 94 H 23 95 08/17/20 17:07 97 08/17/20 16:30 97 H 20 129/87 97 08/17/20 15:16 37.1 C 97 H 18 119/71 97 PG Care Time/CCT Total # of Minutes Spent Total Time Spent with Patient: Total time spent is greater than 50% in coordination of care (as documented) at patient's floor/unit and/or counseling patient: Coding Level of Care Code 96367 Inpt Consult Level 5 Diagnoses Diverticulitis of intestine with abscess K57.80
[2020-08-17 21:28] LABS: Influenza A virus by PCR Negative (Neg); Influenza B virus by PCR Negative (Neg); RSV by PCR Negative (Neg); SARS CoV2 RNA(COVID-19) InHosp NEGATIVE (Negative)
[2020-08-17] MEDS ORDERED: hydrALAZINE HCL 20 MG/ML VIAL IV PRN (23:10)
[2020-08-17] MEDS ORDERED: MoRPHine SULFATE 2 MG/ML CARP IV PRN (23:10)
[2020-08-17] MEDS ORDERED: ONDANSETRON INJ 2 MG/ML 2 ML VIAL IV PRN (23:10)
[2020-08-17] MEDS: FAMOTIDINE 20 MG in SYRINGE 3 ML IV SCH (23:32)
[2020-08-17] MEDS: NSS + 20MEQ KCL 20 MEQ/1,000 ML BAG IV SCH (23:32)
[2020-08-17] MEDS: LORazepam 0.25 MG/0.5 ML VIAL IV PRN (23:47)
--- NOTE | 2020-08-18 | History & Physical Report ---
Date of Service August 17, 2020 Assessment & Plan (1) Diverticulitis of intestine with perforation and abscess: Diverticulitis of intestine with perforation and abscess/presumptive IBD- Hold mesalamine, and oral pantoprazole while n.p.o. Zosyn 3.375 g IV every 8 hours Flagyl 500 mg IV every 8 hours Famotidine 20 mg IV every 12 hours NSS + KCl 20 mEq at 100 mils per hour Zofran 4 mg IV every 6 hours as needed Morphine sulfate 2 mg IV every 4 hours as needed severe pain Present on Admission?: Yes (2) Coronary artery disease: CAD/HTN- Hold atenolol, nifedipine, Xarelto. Hydralazine 10 mg IV every 4 hours as needed systolic blood pressure greater than 160 Present on Admission?: Yes (3) Hypertension: see above Present on Admission?: Yes (4) Hyperlipidemia: Hold rosuvastatin Present on Admission?: Yes (5) Chronic anticoagulation: Hold Xarelto in the event of upcoming procedure May need to bridge with Lovenox or heparin IV in the interim Present on Admission?: Yes (6) Dementia: Dementia/anxiety/depression- Since patient is n.p.o. we will hold: Clonazepam, donepezil, melatonin, Seroquel. Present on Admission?: Yes (7) Anxiety: See above Present on Admission?: Yes (8) Depression: See above Present on Admission?: Yes (9) Low back pain: Low back pain/lumbar degenerative disc disease/lumbar spinal stenosis- No acute fractures on CT scan. No active treatment at this time due to overriding effect of GI infection. Present on Admission?: Yes (10) Lumbar degenerative disc disease: See above Present on Admission?: Yes (11) Lumbar spinal stenosis: See above Present on Admission?: Yes Admission and Anticipated Discharge Date Admission Date: August 17, 2020 History of Present Illness Chief Complaint: The patient presents to the emergency department with complaint of low back pain ever since she had her second COVID-19 vaccine last week, has f elt generally achy and sore, and today as noted increased number of relatively loose bowel movements. Primary Care Provider: PT DECLINED The patient is a 75-year-old female with a past medical history including hypertension, anxiety, dementia, hyperlipidemia, insomnia, GERD, CAD, myocardial infarction, peripheral vascular disease, status post CEA, cholecystectomy and hysterectomy. She presents with symptoms as noted above. Allergies Allergy/AdvReac Type Severity Reaction Status Date / Time escitalopram [From Lexapro] Allergy Unknown Verified 08/17/20 18:29 hydroxyzine [From Vistaril] Allergy Unknown Verified 08/17/20 18:29 Sulfa (Sulfonamide Allergy Unknown Verified 08/17/20 18:29 Antibiotics) trimethobenzamide Allergy Unknown Verified 08/17/20 18:29 [From Tigan] Home Medications Medication Instructions Recorded Confirmed Type atenolol 50 mg PO QAM 08/17/20 08/17/20 History clonazepam 0.5 mg PO AMPM 08/17/20 08/17/20 History donepezil 5 mg PO QPM 08/17/20 08/17/20 History ezetimibe 10 mg PO QAM 08/17/20 08/17/20 History melatonin 3 mg PO HS 08/17/20 08/17/20 History mesalamine 1.2 g PO BID 08/17/20 08/17/20 History mirtazapine 30 mg PO QPM 08/17/20 08/17/20 History nifedipine 90 mg PO QAM 08/17/20 08/17/20 History pantoprazole 40 mg PO QAM 08/17/20 08/17/20 History psyllium husk [Metamucil] 1 tbsp PO QAM 08/17/20 08/17/20 History quetiapine 25 mg PO HS 08/17/20 08/17/20 History rivaroxaban [Xarelto] 15 mg PO QPM 08/17/20 08/17/20 History rosuvastatin 40 mg PO QAM 08/17/20 08/17/20 History vit C-vit R-whnqfl-lzak-lutein 1 cap PO BID 08/17/20 08/17/20 History [PreserVision Lutein] Past Med/Surg History Medical History (Updated 08/18/20 @ 03:24 by Arun Harvey MD) Anxiety Chronic anticoagulation Coronary artery disease Dementia Depression Hyperlipidemia Hypertension Myocardial infarction Normal colonoscopy Peripheral vascular disease Surgical History (Updated 08/17/20 @ 21:03 by Art Martinez PA-C) History of carotid endarterectomy History of cholecystectomy History of hysterectomy Social History Smoking Status: Never smoker Hx Alcohol Use: No Hx Substance Use: No Preferred Language: Luxembourger Communication Ability: Effective Rn Tele Required: No Beliefs That Will Affect Care: None Current Living Situation: Family Current Living Situation Comment: daughter and son-in-law Other Information That Helps Us Care for You: No Feels Safe at Home: Yes Safety Concerns: Feels Safe At This Time Assistive Devices: Glasses Review of Systems Review of Systems: The patient denies chest pain, palpitations, shortness of breath, dyspnea on exertion, cough, lower extremity swelling, sore throat, fevers, chills, sweats, nausea, vomiting, blood in urine or stool, dysuria, urinary frequency or urgency, lightheadedness, dizziness, headache, memory loss, loss of consciousness, rash, abnormal bruising or bleeding, imbalance, focal or generalized weakness, numbness or tingling in arms or legs, neck pain, or night sweats. The review of systems is otherwise negative other than for that already noted above, and at least 10 systems have been reviewed. Physical Exam Physical Exam: The patient is awake, alert and oriented 3, well developed and well nourished, normocephalic and atraumatic, lying in bed and in no acute distress. HEENT--PERRL, EOMI, mucous membranes and oropharynx dry. Neck--supple. No JVD. No bruits. Thyroid normal, trachea midline, no adenopathy. Heart--normal S1 and S2. No murmurs, rubs or gallops. Lungs--clear bilaterally, no respiratory distress, no accessory muscle use. Abdomen--decreased bowel sounds and soft. Tender left lower quadrant. Nondistended. Extremities--no cyanosis or clubbing. No edema. Dermatologic--normal skin turgor, normal color, no abnormal lymph nodes, no rash. Neurologic--cranial nerves II through XII grossly intact. Rheumatologic--normal range of motion. Psychiatric--normal affect. Results & Data Results & Data ([facility]) Vital Signs (Past 12 Hours) Vital Signs Temp Pulse Pulse Resp BP BP BP 08/17/20 22:45 97.7 F 80 18 119/74 08/17/20 22:22 76 18 106/70 08/17/20 21:00 83 22 116/74 08/17/20 20:30 78 21 106/62 08/17/20 20:00 80 20 125/58 L 08/17/20 19:30 80 26 H 116/60 08/17/20 19:27 87 21 118/61 08/17/20 19:00 88 23 117/71 08/17/20 18:30 82 20 111/71 08/17/20 18:01 93 H 27 H 89/57 L 08/17/20 17:33 94 H 21 120/68 08/17/20 17:30 94 H 23 08/17/20 17:20 98 H 23 08/17/20 17:10 91 H 19 08/17/20 17:08 94 H 23 08/17/20 17:07 08/17/20 16:30 97 H 20 129/87 08/17/20 15:16 98.8 F 97 H 18 119/71 Pulse Ox 08/17/20 22:45 93 08/17/20 22:22 94 08/17/20 21:00 08/17/20 20:30 08/17/20 20:00 93 08/17/20 19:30 93 08/17/20 19:27 94 08/17/20 19:00 93 08/17/20 18:30 95 08/17/20 18:01 97 08/17/20 17:33 96 08/17/20 17:30 93 08/17/20 17:20 97 08/17/20 17:10 98 08/17/20 17:08 95 08/17/20 17:07 97 08/17/20 16:30 97 08/17/20 15:16 97 Laboratory Results Laboratory Results WBC 10.98 K/uL (4.8-10.8) H 08/17/20 15:30 RBC 4.64 M/uL (4.2-5.4) 08/17/20 15:30 Hgb 13.6 g/dL (12.0-16.0) 08/17/20 15:30 Hct 40.5 % (37-47) 08/17/20 15:30 MCV 87.3 fL (80-100) 08/17/20 15:30 MCH 29.3 pg (25-34) 08/17/20 15:30 MCHC 33.6 g/dL (32-36) 08/17/20 15:30 RDW Std Deviation 46.1 fL (36.4-46.3) 08/17/20 15:30 RDW Coeff of Jacki 14.4 % (11.5-14.5) 08/17/20 15: Plt Count 386 K/uL (130-400) 08/17/20 15:30 MPV 10.9 fL (7.4-10.4) H 08/17/20 15:30 Immature Gran % (Auto) 0.1 % 08/17/20 15: Neut % (Auto) 77.3 % 08/17/20 15:30 Lymph % (Auto) 10.0 % 08/17/20 15:30 Mcdonald % (Auto) 11.9 % 08/17/20 15: Eos % (Auto) 0.6 % 08/17/20 15: Baso % (Auto) 0.1 % 08/17/20 15:30 Neut # (Auto) 8.48 K/uL (1.4-6.5) H 08/17/20 15:30 Lymph # (Auto) 1.10 K/uL (1.2-3.4) L 08/17/20 15:30 Mcdonald # (Auto) 1.31 K/uL (0.11-0.59) H 08/17/20 15:30 Eos # (Auto) 0.07 K/uL (0-0.5) 08/17/20 15:30 Baso # (Auto) 0.01 K/uL (0-0.2) 08/17/20 15:30 Immature Gran # (Auto) 0.01 K/uL (0.00-0.02) 08/17/20 15:30 Sodium 139 mmol/L (136-145) 08/17/20 15:30 Potassium 3.3 mmol/L (3.5-5.1) L 08/17/20 15:30 Chloride 103 mmol/L (98-107) 08/17/20 15:30 Carbon Dioxide 28 mmol/L (21-32) 08/17/20 15:30 Anion Gap 8.0 (3-11) 08/17/20 15:30 BUN 16 mg/dl (7-18) 08/17/20 15:30 Creatinine 1.10 mg/dl (0.6-1.2) 08/17/20 15:30 Est Cr Clr Drug Dosing Not Reportable 08/17/20 15:30 Est GFR ( Amer) 56.9 08/17/20 15:30 Est GFR (Non-Af Amer) 49.1 08/17/20 15:30 BUN/Creatinine Ratio 14.7 (10-20) 08/17/20 15:30 Glucose 107 mg/dl (70-99) H 08/17/20 15:30 Calcium 9.6 mg/dl (8.5-10.1) 08/17/20 15:30 Magnesium 2.3 mg/dl (1.8-2.4) 08/17/20 15:30 Total Bilirubin 0.5 mg/dl (0.2-1) 08/17/20 15:30 AST 214 U/L (15-37) H 08/17/20 15:30 ALT 264 U/L (12-78) H 08/17/20 15:30 Alkaline Phosphatase 133 U/L (45-117) H 08/17/20 15:30 Total Protein 8.4 gm/dl (6.4-8.2) H 08/17/20 15:30 Albumin 3.3 gm/dl (3.4-5.0) L 08/17/20 15:30 Globulin 5.1 gm/dl (2.5-4.0) H 08/17/20 15:30 Albumin/Globulin Ratio 0.6 (0.9-2) L 08/17/20 15:30 Lipase 337 U/L (73-393) 08/17/20 15:30 Urine Color Dark Yellow 08/17/20 18:20 Urine Appearance Clear (Clear) 08/17/20 18:20 Urine pH 5.5 (4.5-7.5) 08/17/20 18:20 Ur Specific [place] 1.028 (1.000-1.030) 08/17/20 18:20 Urine Protein 2+ (Negative) H 08/17/20 18:20 Urine Glucose (UA) Negative (Negative) 08/17/20 18:20 Urine Ketones Trace (Negative) H 08/17/20 18:20 Urine Blood Negative (Negative) 08/17/20 18:20 Urine Nitrite Negative (Negative) 08/17/20 18:20 Urine Bilirubin Negative (Negative) 08/17/20 18:20 Urine Urobilinogen Negative (Negative) 08/17/20 18:20 Ur Leukocyte Esterase Negative (Negative) 08/17/20 18:20 Urine WBC (Auto) 5-10 /hpf (0-5) H 08/17/20 18:20 Urine RBC (Auto) 0-4 /hpf (0-4) 08/17/20 18:20 U Hyaline Cast (Auto) 5-10 /lpf (0-5) H 08/17/20 18:20 U Epithel Cells (Auto) >30 /lpf (0-5) H 08/17/20 18:20 Urine Bacteria (Auto) Negative (Negative) 08/17/20 18:20 COVID-19 Eval Order [facility]Rsv at [facility] 08/17/20 20:30 SARS-CoV-2 (PCR) NEGATIVE (Negative) 08/17/20 20:30 Influenza Type A (PCR) Negative (Neg) 08/17/20 20:30 Influenza Type B (PCR) Negative (Neg) 08/17/20 20:30 RSV (RT-PCR) Negative (Neg) 08/17/20 20:30 Impressions Abdomen/Pelvis CT 08/17/20 17:[address] WITH IV CONTRAST CT DOSE: 479.46 mGy.cm HISTORY: change in bowel movements, back pain TECHNIQUE: Multiaxial CT images of the abdomen and pelvis were performed following the use of intravenous contrast. A dose lowering technique was utilized adhering to the principles of ALARA. COMPARISON STUDY: None. FINDINGS: There is a 4 mm subpleural nodule within the base of the right lower lobe on image 36. There is a large hiatus hernia containing the majority of the stomach as well as the spleen and splenic flexure of the colon. No suspicious lytic are blastic osseous lesions. There are poststernotomy changes. The gallbladder surgically absent. This may account for the mild intra and extra hepatic bile duct dilatation. No hepatic or splenic masses. The adrenal glands and pancreas are unremarkable. Small bilateral peripelvic renal cysts are noted. There are also a few subcentimeter hypodense renal lesions. These are technically too small to characterize but also favor cysts. No hydronephrosis. No retroperitoneal lymphadenopathy. Normal caliber abdominal aorta demonstrating moderate calcified plaque. The bladder is decompressed. The uterus is surgically absent. Colonic diverticulosis. There is focal thickening and pericolonic fat stranding within the proximal sigmoid colon consistent with acute diverticulitis. There is a small pericolonic abscess best seen on image 318 which measures 2.6 cm. There is also a punctate focus of extraluminal gas at this location on image 286 consistent with microperforation. There is a 1 cm indeterminate left perinephric/retroperitoneal nodule best seen on image 102. No evidence for bowel obstruction. Focal mild thickening within the mid appendix best seen on image 289 which measures 9 mm. The distal appendix is normal in caliber. No periappendiceal fat stranding to suggest acute appendicitis. IMPRESSION: 1. Acute diverticulitis involving the proximal sigmoid colon with a small focus of microperforation and an adjacent 2.2 cm pericolonic abscess. Follow-up colonoscopy is recommended once the vasculitis has resolved to exclude the less likely possibility of an underlying colonic lesion. 2. There is an indeterminate 1 cm left perinephric/retroperitoneal nodule as described above. 3 month abdomen and pelvis CT follow-up recommended to evaluate for stability and to exclude the possibility of a soft tissue implant. 3. Focal mild thickening within the mid appendix without inflammatory change. This also requires [address] follow-up to exclude the possibility of an appendiceal lesion. 4. Large hiatus hernia. 5. A 4 mm subpleural nodule within the right lower lobe. 6. Additional findings as described above. ACT 112: Positive. There are findings on this exam that require communication between the performing entity and the patient following Patient Test Result Information Act ([place] Act 112) guidelines. Electronically signed by: Akil See M.D. 08/17/2020 7:[address] 08/17/20 17:[address] DOSE: HISTORY: low back pain TECHNIQUE: Multiaxial CT images of the lumbar spine were performed and reformatted in the sagittal and coronal plane without the use of contrast. A dose lowering technique was utilized adhering to the principles of ALARA. COMPARISON: None. FINDINGS: Mild dextroscoliosis centered at the L3 level. Moderate to severe disc space narrowing at L5-S1. Mild disc space narrowing at L2-L3 and L3-L4 with small endplate osteophytes. There are [id number] facet degenerative changes seen within the lumbar spine. This most pronounced at the L3-L4 level. The visualized sacrum is intact. No fracture or subluxation. Paravertebral soft tissues are unremarkable. Moderate central canal narrowing at L3-L4 and L4-L5 due to broad-based posterior disc bulge and ligamentum flavum and facet hypertrophy. IMPRESSION: 1. No fractures within the lumbar spine. 2. Moderate central canal narrowing at L3-L4 and L4-L5 due to broad-based posterior disc bulges and ligamentum and facet hypertrophy. 3. Mild dextroscoliosis. ACT 112: Negative or not required by law. Electronically signed by: Akil eSe M.D. 08/17/2020 7:21 PM Code Status & VTE Plan Code Status Full code VTE Prophylaxis Plan VTE Prophylaxis will be ordered: Yes PG Care Time/CCT Total # of Minutes Spent Total Time Spent with Patient: Total time spent is greater than 50% in coordination of care (as documented) at patient's floor/unit and/or counseling patient: Coding Level of Care Code 32439 Initial Inpt Care Lvl 3 Diagnoses Diverticulitis of intestine with perforation and abscess K57.80 Coronary artery disease I25.10 Hypertension I10 Hyperlipidemia E78.5 Chronic anticoagulation Z79.01 Dementia F03.90 Anxiety F41.9 Depression F32.9 Low back pain M54.5 Back pain laterality: midline Chronicity: acute Sciatica presence: without sciatica Lumbar degenerative disc disease M51.36 Lumbar spinal stenosis M48.061 (1) Low back pain Back pain laterality: midline Chronicity: acute Sciatica presence: without sciatica Qualified Code(s): M54.5 - Low back pain
[2020-08-18] MEDS: PIPERACILLIN/TAZOBACTAM 3.375 GM in DEXTROSE 5% 100 ML IV SCH ×3 (02:00→18:01)
[2020-08-18] MEDS ORDERED: metroNIDAZOLE 500 MG/100 ML BAG IV SCH (04:00)
[2020-08-18 06:04] LABS: Basophils # (auto) 0.01 K/uL (0-0.2); Basophils % (auto) 0.1 %; Eosinophils # (auto) 0.12 K/uL (0-0.5); Eosinophils % (auto) 1.6 %; Hematocrit (blood only) 35.6 % (37-47); Hemoglobin 11.8 g/dL (12.0-16.0); Immature Granulocytes # (auto) 0.01 K/uL (0.00-0.02); Immature Granulocytes % (auto) 0.1 %; Lymphocytes # (auto) 0.85 K/uL (1.2-3.4); Lymphocytes % (auto) 11.6 %; Mean Corpuscular Hgb Conc 33.1 g/dL (32-36); Mean Corpuscular Volume 87.5 fL (80-100); Mean Platelet Volume 10.4 fL (7.4-10.4); Monocytes # (auto) 1.12 K/uL (0.11-0.59); Monocytes % (auto) 15.3 %; Neutrophils # (auto) 5.22 K/uL (1.4-6.5); Neutrophils % (auto) 71.3 %; Platelet Count 287 K/uL (130-400); RDW Coefficient of Variation 14.5 % (11.5-14.5); RDW Standard Deviation 46.6 fL (36.4-46.3); Red Blood Count 4.07 M/uL (4.2-5.4); White Blood Count 7.33 K/uL (4.8-10.8)
[2020-08-18 06:21] LABS: INR 1.2 (0.9-1.1); Partial Thromboplastin Ratio 1.2; Partial Thromboplastin Time 32.4 Seconds (21.0-31.0); Prothrombin Time 12.4 Seconds (9.0-12.0)
[2020-08-18 06:36] LABS: Albumin Level 2.5 gm/dl (3.4-5.0); BUN Creatinine Ratio 12.4 (10-20); Calcium 8.2 mg/dl (8.5-10.1); Creatinine Clr Calc Pharmacy 58.6 ml/min; Est GFR (African American) 72.5; Est GFR (Non-African American) 62.5; Potassium 3.3 mmol/L (3.5-5.1)
[2020-08-18 06:42] LABS: Albumin Globulin Ratio 0.7 (0.9-2); Bilirubin,Total 0.4 mg/dl (0.2-1); Globulin 3.7 gm/dl (2.5-4.0); Total Protein 6.2 gm/dl (6.4-8.2)
[2020-08-18] MEDS: FAMOTIDINE 20 MG in SYRINGE 3 ML IV SCH (08:47)
[2020-08-18] MEDS: ACETAMINOPHEN 325 MG TAB PO PRN ×2 (08:47→21:59)
--- NOTE | 2020-08-18 09:30 | Surgery Progress Note ---
Date of Service August 18, 2020 Assessment & Plan (1) Diverticulitis of intestine with perforation and abscess: Patient here with diverticulitis and microperforation of sigmoid colon WBC 7 (10). Patient afebrile She reports + bowel function Abdomen ttp in the LLQ Continue IV abx Would continue NPO with ice/sips for today Admission and Anticipated Discharge Date Admission Date: August 17, 2020 Supervising Physician Co-Signing Physician Notes I personally saw and evaluated the patient with Lilibeth Dowell PA-C and agree with the assessment and plan. 75 yo female with acute diverticulitis with abscess -Ok to trial clear liquids -Pain control PRN -WBC has normalized -No plans for surgical intervention at this time Subjective Patient states she has some abdominal pain this AM after having a BM. She states the pain doubled her over, but she is feeling somewhat better now after receivin g pain medication. She is passing flatus. She denies nausea/vomiting. Physical Exam Physical Exam: awake/alert Constitutional: well developed and well nourished; no acute distress Respiratory: normal respiratory effort Gastrointestinal (Abdomen): Inspection/Auscultation: abdomen not distended Percussion/Palpation: + abdomen tender (ttp in the lower abdomen, worse on the L side) and abdomen soft Results & Data ([facility]) Vital Signs (Past 12 Hours) Vital Signs Temp Pulse Pulse Resp BP BP Pulse Ox 08/18/20 07:26 36.5 C 70 18 118/78 94 08/17/20 22:45 36.5 C 80 18 119/74 93 08/17/20 22:22 76 18 106/70 94 PG Care Time/CCT Total # of Minutes Spent Total Time Spent with Patient: Total time spent is greater than 50% in coordination of care (as documented) at patient's floor/unit and/or counseling patient: Coding Level of Care Code 05486 Subseq Hosp Care Lvl 1 Diagnoses Diverticulitis of intestine with perforation and abscess K57.80
[2020-08-18] MEDS: NSS + 20MEQ KCL 20 MEQ/1,000 ML BAG IV SCH ×2 (09:50→20:21)
--- NOTE | 2020-08-18 12:19 | Hospitalist Progress Note ---
Date of Service August 18, 2020 Assessment & Plan (1) Diverticulitis of intestine with perforation and abscess: Anamika Parra is a 75 yo female with h/o a-fib (on Xarelto/Atenolol), HTN, HLD, previous MS, PVD, s/p CEA, dementia and anxiety who was admitted to [facility] on 08/17/2020 for complicated diverticulitis. Being managed medically. Diverticulitis Presented with abdominal pain and loose BMs, CT showed sigmoid diverticulitis with picro-perforation and pericolonic abscess. - surgery consulted: recommend medical management with abx as above as well as bowel rest, IVFs and pain/nausea treatment; may consider surgical intervention after infection resolves - Received Zosyn/Flagyl in the ED, continue with Zosyn - continue NSS + 20mEq KCL @100cc/hr - Tylenol/Morphine PRN pain regimen - Zofran PRN anti-emetic - advanced diet to clear liquids today - CBC daily Transaminitis, improving Elevated ALT/AST to 200s, decreased by 50% today, suspect demand ischemia in liver 2/2 dehydration in context of diverticulitis. - trend CMP daily GERD - re-started home Protonix 40mg PO QAM Atrial Fibrillation - re-started home Xarelto 15mg PO QPM, given no acute surgical intervention Hypertension - Hydralazine 10 mg IV every 4 hours as needed systolic blood pressure greater than 160 Hyperlipidemia - re-started rosuvastatin Dementia/anxiety/depression - Re-started: Donepezil, Mirtazepine, Seroquel - PRN Ativan 0.25mg IV Q6H to replace home Klonipin FEN/GI: clear liquid diet, IVFs as above DVT Prophylaxis: Xarelto 15mg PO QPM Code Status: Full code Disposition: Med/surg (2) Coronary artery disease: (3) Hypertension: (4) Hyperlipidemia: (5) Chronic anticoagulation: Admission and Anticipated Discharge Date Admission Date: August 17, 2020 Supervising Physician Co-Signing Physician Notes I personally examined the patient and verified all nelson points of history and exam, discussed case, and agree with decision making with Dr Ojeda. Feeling better than when she came in. Still some left lower abdominal pain but improved. Pain generally now only whenever she feels like she has to have a bowel movement. Very hungry. Vitals noted, in general she is awake and alert pleasant no distress. HEENT normocephalic atraumatic mucous membranes moist. Breathing unlabored no accessory muscle use good effort. Abdomen is soft nondistended mild surprisingly mild left lower quadrant tenderness without guarding rebound or rigidity. Diverticulitis with perforation and small abscessfortunately appears to be doing well with conservative care. Continue antibiotics. Continue supportive care. Otherwise as above Subjective No acute events overnight. Patient reports improvement in abdominal pain this morning after taking Tylenol but says it is still present in LLQ. Reports worsening of pain with BMs; has had 2 BMs since hospitalized that are loose but no blood. Wants to try clear liquids. Denies fever/chills, chest pain, palpitations, SOB. Review of Systems Review of Systems: Pertinent positives and negatives mentioned in HPI Physical Exam Physical Exam: General: A&Ox3. NAD. Cooperative. HEENT: Atraumatic, normocephalic. Pulm: CTAB A&P. -wheezes, -rales, -rhonchi. Symmetrical chest rise. No increase work of breathing. No respiratory distress. Cardiac: RRR, -mrg. Radial pulses intact and symmetrical. Abdominal: soft, non-distended, moderate TTP in LLQ without guarding or rebound, NA BS x 4 Skin: warm, dry Results & Data Results & Data ([facility]) Vital Signs (Past 12 Hours) Vital Signs Temp Pulse Resp BP Pulse Ox 08/18/20 07:26 36.5 C 70 18 118/78 94 Resident Activity Tracking Resident Involvement: Resident Care Provided Care Provided: Adult Hospital Medicine
--- NOTE | 2020-08-18 18:54 | Billing Data ---
Date of Service August 18, 2020 Coding Level of Care Code 45560 Subseq Hosp Care Lvl 3
[2020-08-18 19:57] LABS: Appearance Urine Clear (Clear); Bacteria Urine Automated Negative (Negative); Bilirubin Urine Negative (Negative); Blood Urine Negative (Negative); Color Urine Yellow; Epithelial Cell Urine Auto >30 /lpf (0-5); Glucose Urine UA Negative (Negative); Ketones Urine Negative (Negative); Leukocyte Esterase Urine Negative (Negative); Nitrite Urine Negative (Negative); Protein Urine 1+ (Negative); RBC Urine Automated 0-4 /hpf (0-4); Specific Gravity Urine 1.025 (1.000-1.030); Urobilinogen Urine Negative (Negative); pH Urine 5.5 (4.5-7.5)
[2020-08-18] MEDS ORDERED: RIVAROXABAN 15 MG TAB PO SCH (21:00)
[2020-08-18] MEDS ORDERED: DONEPEZIL HCL 5 MG TAB PO SCH (21:00)
[2020-08-18] MEDS ORDERED: QUEtiapine FUMARATE 25 MG TABLET PO SCH (21:00)
[2020-08-18] MEDS ORDERED: MIRTAZAPINE TAB 15 MG TAB PO SCH (21:00)
[2020-08-18] MEDS: LORazepam 0.25 MG/0.5 ML VIAL IV PRN (21:17)
[2020-08-19] MEDS: PIPERACILLIN/TAZOBACTAM 3.375 GM in DEXTROSE 5% 100 ML IV SCH ×2 (02:36→09:53)
--- NOTE | 2020-08-19 05:35 | Electrocardiogram Report ---
Test Reason : Blood Pressure : / mmHG Vent. Rate : 090 BPM Atrial Rate : 107 BPM P-R Int : 000 ms QRS Dur : 146 ms QT Int : 408 ms P-R-T Axes : 000 -68 -14 degrees QTc Int : 499 ms Atrial fibrillation Right bundle branch block Left anterior fascicular block Bifascicular block Possible Anterolateral infarct Abnormal ECG No previous ECGs available Confirmed by Sky Valdes ([id number]) on 08/19/2020 5:35:09 AM Referred By: REFERRED SELF Confirmed By:Sky Valdes
[2020-08-19] MEDS: NSS + 20MEQ KCL 20 MEQ/1,000 ML BAG IV SCH (05:54)
[2020-08-19 06:09] LABS: Basophils # (auto) 0.01 K/uL (0-0.2); Basophils % (auto) 0.2 %; Hematocrit (blood only) 36.6 % (37-47); Hemoglobin 11.6 g/dL (12.0-16.0); Immature Granulocytes # (auto) 0.01 K/uL (0.00-0.02); Immature Granulocytes % (auto) 0.2 %; Lymphocytes # (auto) 0.97 K/uL (1.2-3.4); Lymphocytes % (auto) 14.7 %; Mean Corpuscular Hemoglobin 28.5 pg (25-34); Mean Corpuscular Hgb Conc 31.7 g/dL (32-36); Mean Corpuscular Volume 89.9 fL (80-100); Mean Platelet Volume 10.1 fL (7.4-10.4); Monocytes # (auto) 0.81 K/uL (0.11-0.59); Monocytes % (auto) 12.3 %; Neutrophils # (auto) 4.59 K/uL (1.4-6.5); Neutrophils % (auto) 69.6 %; Platelet Count 265 K/uL (130-400); RDW Coefficient of Variation 14.5 % (11.5-14.5); RDW Standard Deviation 47.9 fL (36.4-46.3); Red Blood Count 4.07 M/uL (4.2-5.4); White Blood Count 6.59 K/uL (4.8-10.8)
[2020-08-19 06:24] LABS: INR 1.5 (0.9-1.1); Partial Thromboplastin Ratio 1.4; Partial Thromboplastin Time 36.9 Seconds (21.0-31.0); Prothrombin Time 14.3 Seconds (9.0-12.0)
[2020-08-19 06:41] LABS: Albumin Level 2.5 gm/dl (3.4-5.0); BUN Creatinine Ratio 7.6 (10-20); Calcium 8.4 mg/dl (8.5-10.1); Creatinine Clr Calc Pharmacy 57.9 ml/min; Est GFR (African American) 71.5; Est GFR (Non-African American) 61.7; Potassium 3.7 mmol/L (3.5-5.1)
[2020-08-19 06:44] LABS: Albumin Globulin Ratio 0.6 (0.9-2); Bilirubin,Total 0.3 mg/dl (0.2-1); Globulin 4.1 gm/dl (2.5-4.0); Total Protein 6.6 gm/dl (6.4-8.2)
[2020-08-19] MEDS: ACETAMINOPHEN 325 MG TAB PO PRN (07:55)
[2020-08-19] MEDS ORDERED: PANTOprazole 40 MG TAB PO SCH (09:00)
[2020-08-19] MEDS ORDERED: ROSUVASTATIN CALCIUM 20 MG TAB PO SCH (09:00)
--- NOTE | 2020-08-19 09:27 | Surgery Progress Note ---
Date of Service August 19, 2020 Assessment & Plan (1) Diverticulitis of intestine with perforation and abscess: Patient feeling well this AM. Denies any abdominal complaints and is less tender on exam. She is passing flatus/BMs VSS and patient afebrile. WBC 6.5 Tolerated clear liquids without issues, can trial advancing to fulls for lunch Admission and Anticipated Discharge Date Admission Date: August 17, 2020 Supervising Physician Co-Signing Physician Notes I personally saw and evaluated the patient with Lilibeth Dowell PA-C and agree with the assessment and plan. 75 yo female with acute diverticulitis with abscess, improving -Advance to low fiber diet -Pain control PRN -WBC remains normal -No plans for surgical intervention -Ok to discharge home later today if tolerates diet -She states she lives in [place], but should have follow up with her PCP within one week and follow up with GI in 6-8 weeks for colonoscopy Subjective Patient has complaints of back pain this AM, made better by sitting up in the chair. She currently denies abdominal pain. She is tolerating clear liquids without nausea/vomiting. She continues to pass flatus and had a BM this AM. Physical Exam Physical Exam: awake/alert, sitting up in chair Constitutional: well developed and well nourished; no acute distress Respiratory: normal respiratory effort Gastrointestinal (Abdomen): Inspection/Auscultation: abdomen not distended Percussion/Palpation: abdomen soft; abdomen nontender Results & Data ([facility]) Vital Signs (Past 12 Hours) Vital Signs Temp Pulse Resp BP Pulse Ox 08/19/20 07:25 36.6 C 98 H 16 124/89 93 08/18/20 22:10 37.1 C 114 H 16 149/81 H 92 PG Care Time/CCT Total # of Minutes Spent Total Time Spent with Patient: Total time spent is greater than 50% in coordination of care (as documented) at patient's floor/unit and/or counseling patient: Coding Level of Care Code 74237 Subseq Hosp Care Lvl 1 Diagnoses Diverticulitis of intestine with perforation and abscess K57.80
--- NOTE | 2020-08-19 11:22 | Discharge Summary ---
Date of Service August 19, 2020 Admission HPI Per Admitting Provider The patient is a 75-year-old female with a past medical history including hypertension, anxiety, dementia, hyperlipidemia, insomnia, GERD, CAD, myocardial infarction, peripheral vascular disease, status post CEA, cholecystectomy and hysterectomy. She presents with symptoms as noted above. Admission Exam Per Admitting Provider The patient is awake, alert and oriented 3, well developed and well nourished, normocephalic and atraumatic, lying in bed and in no acute distress. HEENT--PERRL, EOMI, mucous membranes and oropharynx dry. Neck--supple. No JVD. No bruits. Thyroid normal, trachea midline, no adenopathy. Heart--normal S1 and S2. No murmurs, rubs or gallops. Lungs--clear bilaterally, no respiratory distress, no accessory muscle use. Abdomen--decreased bowel sounds and soft. Tender left lower quadrant. Nondistended. Extremities--no cyanosis or clubbing. No edema. Dermatologic--normal skin turgor, normal color, no abnormal lymph nodes, no rash. Neurologic--cranial nerves II through XII grossly intact. Rheumatologic--normal range of motion. Psychiatric--normal affect. Principal Diagnosis Acute Sigmoid Diverticulitis with Microperforation and Pericolonic Abscess Discharge Exam General: A&Ox3. NAD. Cooperative. HEENT: Atraumatic, normocephalic. Pulm: CTAB A&P. -wheezes, -rales, -rhonchi. Symmetrical chest rise. No increase work of breathing. No respiratory distress. Cardiac: RRR, -mrg. Radial pulses intact and symmetrical. Abdominal: soft, non-distended, non-tender, NA BS x 4 Skin: warm, dry Discharge Data Allergies Allergy/AdvReac Type Severity Reaction Status Date / Time escitalopram [From Lexapro] Allergy Unknown Verified 08/17/20 18:29 hydroxyzine [From Vistaril] Allergy Unknown Verified 08/17/20 18:29 Sulfa (Sulfonamide Allergy Unknown Verified 08/17/20 18:29 Antibiotics) trimethobenzamide Allergy Unknown Verified 08/17/20 18:29 [From Tigan] Consultations 08/17/20 20:50 ED Decision to Admit Stat Ordered Studies 08/17/20 17:14 CT abd pelvis IV con only Stat CT lumbar spine wo con Stat Hospital Course (1) Diverticulitis of intestine with perforation and abscess: Anamika Parra is a 75 yo female with h/o a-fib (on Xarelto/Atenolol), HTN, HLD, previous ND, PVD, s/p CEA, dementia and anxiety who was admitted to [facility] on 08/17/2020 for complicated diverticulitis. Being managed medically. Diverticulitis Presented with abdominal pain and loose BMs, CT showed sigmoid diverticulitis with picro-perforation and pericolonic abscess. - surgery consulted: no surgical intervention - bowel rest, received IV fluids, Tylenol/Morphine for pain, Zofran for nausea - Received Zosyn/Flagyl in the ED, continued with Zosyn while hospitalized - did well with interventions, advanced to full diet on 08/19 and tolerated well - continue with Ciprofloxacin 500mg PO Q12H x12 days and Metronidazole 500mg PO Q8H x12 days (total of 14 days abx) - f/u with PCP in 1 week - f/u with GI, plan for colonoscopy in 6-8 weeks Transaminitis, resolving Elevated ALT/AST to 200s, decreased by 50% on 08/18 and again on 08/19, unclear etiology - recommend PCP trends LFTs at 1-week f/u GERD - continue Protonix 40mg PO QAM Atrial Fibrillation - continue home Xarelto 15mg PO QPM Hypertension - continue home meds Hyperlipidemia - continue rosuvastatin Dementia/anxiety/depression - continue home meds (2) Coronary artery disease: (3) Hypertension: (4) Hyperlipidemia: (5) Chronic anticoagulation: Total Time Total Time Spent Total Time Spent (In Minutes): <30 minutes Total Time Includes: Examination of the Patient, Discharge Planning, Medication Reconciliation and Communication With Other Providers Discharge Plan Discharge Items Patient Disposition: Home - Self-Care Reason For Visit: Diverticulitis, Microperf, Pericolonic Abscess Discharge Diagnosis: Acute Sigmoid Diverticulitis with Microperforation and Pericolonic Abscess Activity: Per Instructions section Non-emergency contact: Primary Care Provider Call non-emergency contact if: you have any medication questions, your symptoms worsen, your pain is not controlled, your pain is worsening and you have a fever Follow-up/Referrals: Rod Ojdea MD [Resident] - 08/25/20 4:10 pm ([address] [facility] [address]. Please bring insurance info with you to the appointment) Diet: Regular and Low Fiber Addtl Attending Provider Instructions: You were admitted to [facility] on 08/17/2020 for an infection in your bowels, called diverticulitis. Our surgeon was consulted, and he recommended that we treat your infection with antibiotics, and did not recommend surgery. You were started on an IV antibiotic called Jeannine. Additionally, you were given bowel rest (no food/drink) and were given medications for pain and nausea. You did very well with these treatments and your abdominal pain largely resolved within 24 hours. You will be discharged in improved, stable condition on 08/19/2020. You will continue the following antibiotics for 12 days, starting tonight, to treat diverticulitis: 1. Ciprofloxacin, twice per day 2. Metronidazole, three times per day You should also closely monitor for worsening of abdominal pain. You will follow up with Dr. Ojeda next week to monitor your progress with antibiotics. You should continue to take all of your other home medications as scheduled. Lastly, you had low back pain that is most likely due to a muscle issue called Piriformis syndrome. We recommend that you speak with Dr. Ojeda about this during your follow-up appointment, should the pain continue. For now, you can take Tylenol/Ibuprofen for pain control. We hope you continue to feel well. It was a pleasure to help provide your care while you were hospitalized. Pending Studies at Discharge: No Stand-Alone Forms: [facility], Smoking Cessation Medications and DC Order Prescriptions: New ciprofloxacin HCl 500 mg tablet 500 mg PO Q12H 12 Days Qty: 24 RF: 0 metronidazole 500 mg tablet 500 mg PO Q8H 12 Days Qty: 36 RF: 0 Continued quetiapine 25 mg tablet 25 mg PO HS RF: 0 donepezil 5 mg tablet 5 mg PO QPM RF: 0 nifedipine 90 mg tablet extended release 24hr 90 mg PO QAM RF: 0 pantoprazole 40 mg tablet,delayed release (DR/EC) 40 mg PO QAM RF: 0 mirtazapine 30 mg tablet 30 mg PO QPM RF: 0 atenolol 50 mg tablet 50 mg PO QAM RF: 0 rosuvastatin 40 mg tablet 40 mg PO QAM RF: 0 mesalamine 1.2 gram tablet,delayed release (DR/EC) 1.2 g PO BID RF: 0 clonazepam 0.5 mg tablet 0.5 mg PO AMPM RF: 0 melatonin 3 mg Tablet 3 mg PO HS RF: 0 ezetimibe 10 mg tablet 10 mg PO QAM RF: 0 PreserVision Lutein 226 mg-200 unit -5 mg-0.8 mg Capsule 1 cap PO BID RF: 0 Xarelto 15 mg tablet 15 mg PO QPM RF: 0 Metamucil 3.4 gram/5.4 gram Powder 1 tbsp PO QAM RF: 0 Discharge Orders: Discharge Order (Routine); Ordered 08/19/20 Ordered By: Rod Ojeda Admission Data Admit Date/Time: 08/17/20 21:19 Attending Provider: Ian Martins Admit Provider: Arun Harvey Primary Care Provider: PTVENICE Other Providers: Arun Harvey Other Interventions: Discharge Summary Assessment (RN) Last Done: 08/19/20 13:51 Supervising Physician Co-Signing Physician Notes I personally examined the patient and verified all nelson points of history and exam, discussed case, and agree with decision making with Dr Ojeda. Belly pain doing better. Low back pain. Right SI joint area. Fairly intense. Belly mosley she seems to be doing much better though. Vitals noted, in general she is awake and alert pleasant no distress. HEENT normocephalic atraumatic mucous membranes moist. Breathing unlabored no accessory muscle use good effort. MSK/osteopathicshe is tender a little over her right SI joint, but very tender over her right buttocks region in the area of the piriformis, high tone/tender/decreased range of motioninhibitory pressure/LAS and post isometric relaxation done with some improvement in muscle tone. Patient tolerated well, did not notice much of a change in her pain yet. Diverticulitis with perforation and small abscessfortunately appears to be doing well with conservative care. Continue antibiotics - but appears stable for home /PO abx. Since she lives in [place], we will help arrange local follow-up back pain - appearing very biomechanical. somatic dysfunction pelvis region - OMT as above. tolerated well. Resident Activity Tracking Resident Involvement: Resident Care Provided Care Provided: Adult [facility]
--- NOTE | 2020-08-19 20:00 | Billing Data ---
Date of Service August 19, 2020 Coding Level of Care Code D/C Day Management <30 mins
--- NOTE | 2020-08-19 20:01 | Hospitalist Progress Note ---
Date of Service August 19, 2020 Assessment & Plan Admission and Anticipated Discharge Date Admission Date: August 17, 2020 Results & Data Results & Data ([facility]) Vital Signs (Past 12 Hours) Vital Signs Temp Pulse Resp BP BP Pulse Ox 08/19/20 13:51 97.9 F 98 H 16 129/87 124/89 93 PG Care Time/CCT Total # of Minutes Spent Total Time Spent with Patient: Total time spent is greater than 50% in coordination of care (as documented) at patient's floor/unit and/or counseling patient: Coding Level of Care Code None CPT Codes Musculoskeletal - Musculoskeletal: [address] 1-2 Body regions ([id number])
== END 2020-08-19 15:05 | disposition home or self-care (01) | DRG 392 ==
LOC: ED 15:08 → 2N 21:19 → SUATTDRO 21:19 → 2N 22:45 → 3E 08-18 22:10